=== PATIENT | female | born 1955 | race African-American/Black ===

== ENCOUNTER 2018-07-26 15:56 | Emergency (ER) | payer MEDICARE ==
[~2018-07-26] VITALS: Ht 162.6 cm; Wt 83.0 kg
[~2018-07-26 15:56] MED LIST: ASPI-1159 PO; ATEN50TA PO; EPOE10003 SQ; LEVVL SQ; TORS5TAB11 PO
[2018-07-26] MEDS ORDERED: CLONIDINE 0.2MG TABLET PO ONE (17:00)
[2018-07-26 17:30] LABS: BASOPHILS % 1.1 % (0.0-2.0); CHLORIDE 99 mEq/L (98-107); EOSINOPHILS % 2.7 % (0.0-5.0); HEMATOCRIT. 34.3 % (36.0-48.0); HEMOGLOBIN. 10.4 g/dL (12.0-16.0); LYMPHOCYTES % 22.3 % (20.0-50.0); MEAN CORPUSCULAR HEMOGLOBIN 21.6 pg (28.0-32.0); MEAN CORPUSCULAR VOLUME 71.1 fL (81.0-99.0); MEAN PLATELET VOLUME 9.4 fl (7.4-10.4); MONOCYTES % 10.4 % (2.0-8.0); NEUTROPHILS % 63.5 % (40.0-76.0); PLATELET 368 x1000/uL (130-400); RED BLOOD CELL COUNT 4.82 mill/uL (4.2-5.4); RED CELL DISTRIBUTION WIDTH 18.8 % (11.6-14.6)
[2018-07-26 17:32] LABS: PARTIAL THROMBOPLASTIN TIME 23.1 sec (23.4-31.0); PROTHROMBIN TIME 9.7 sec (9.1-11.1)
[2018-07-26 18:18] VITALS: BP 183/91
== END 2018-07-26 20:36 | disposition home or self-care (01) ==
LOC: ER 20:25
DX: T82.41XA Breakdown (mechanical) of vascular dialysis catheter, initial encounter (principal); E11.22 Type 2 diabetes mellitus with diabetic chronic kidney disease; I12.0 Hypertensive chronic kidney disease with stage 5 chronic kidney disease or end stage renal disease; N18.6 End stage renal disease; Z99.2 Dependence on renal dialysis; Z88.8 Allergy status to other drugs, medicaments and biological substances; Z79.899 Other long term (current) drug therapy
CPT/HCPCS: 36415; 80053; 85025; 85610; 85730; 93005; 99285

== ENCOUNTER 2018-07-27 08:07 | Emergency (ER) | payer MEDICARE ==
[~2018-07-27] VITALS: Ht 167.6 cm; Wt 83.0 kg
[2018-07-27 10:53] VITALS: BP 160/90
== END 2018-07-27 12:21 | disposition home or self-care (01) ==
LOC: ER 08:30
DX: T82.49XA Other complication of vascular dialysis catheter, initial encounter (principal); E11.22 Type 2 diabetes mellitus with diabetic chronic kidney disease; I12.0 Hypertensive chronic kidney disease with stage 5 chronic kidney disease or end stage renal disease; N18.6 End stage renal disease; Z99.2 Dependence on renal dialysis; Z79.4 Long term (current) use of insulin; Z88.0 Allergy status to penicillin; Z88.6 Allergy status to analgesic agent; Z88.5 Allergy status to narcotic agent; Z88.8 Allergy status to other drugs, medicaments and biological substances; Y84.1 Kidney dialysis as the cause of abnormal reaction of the patient, or of later complication, without mention of misadventure at the time of the procedure; Y92.018 Other place in single-family (private) house as the place of occurrence of the external cause
CPT/HCPCS: 36556; 76937; 77001; 82962; 99283; C1752